=== PATIENT | female | born 1995 | race Caucasian/White ===

== ENCOUNTER 2021-04-09 11:58 | Emergency (ER) | payer BC, SELFPAY ==
--- NOTE | ~2021-04-09 | XR_ITS ---
EXAMINATION: XR hand RT min 3V EXAM DATE: 04/09/2021 12:23 INDICATION: KNI. Twisted 04/08/21. [place], Pain 1st Mp Jt. TECHNIQUE: Right hand frontal, lateral and oblique projections obtained and reviewed. There is no pr ior study for comparison. FINDINGS: Right metacarpal bones are unremarkable. There are no acute fractures or dislocations iden tified. There is no subcutaneous gas. The soft tissue is unremarkable. There are no radiopaque fo reign bodies. IMPRESSION: 1. Right hand exam without acute osseous findings. Reviewed, dictated and finalized at location B. CULTURAL SPECIALIST
[2021-04-09 12:06] VITALS: BP 133/70; PULSE 112; RESP 14; TEMP 37.2; O2SAT 100
[2021-04-09 12:14] VITALS: BP 133/70; PULSE 112; RESP 14; TEMP 37.2; O2SAT 100
--- NOTE | 2021-04-09 12:21 | ED.UPPEXIN ---
HPI - Extremity Injury (Upper) General Chief Complaint: Extremity Injury, Upper Stated Complaint: Right Hand Injury Time Seen by Provider: 04/09/21 12:20 Source: patient, RN notes reviewed and old records reviewed Mode of arrival: ambulatory History of Present Illness HPI narrative: 25 year old female [facility] with complaints of pain to her base of right thumb and right wrist since yesterday. Patient states that she just twisted her wrist area over and felt a pop now pain is constant to the base of her right thumb hand and wrist, no obvious deformity noted or any swelling, strong right radial pulse. Patient reports that she has used ice to her hand and wrist but has not taken any OTC pain relievers. MD complaint: injury to: right and wrist Onset (ago): day(s) (1) Related Data Home Medications Medication Instructions Recorded Confirmed buspirone 15 mg PO DAILY 04/09/21 04/09/21 escitalopram oxalate 10 mg PO DAILY 04/09/21 04/09/21 etonogestrel [Nexplanon] 1 implant SUBDERMAL ONCE 04/09/21 04/09/21 Allergies Allergy/AdvReac Type Severity Reaction Status Date / Time No Known Allergies Allergy Verified 04/09/21 12:13 Review of Systems Review of Systems: CONSTITUTIONAL: Denies fever, chills, or sweats. EYES: Denies visual changes, redness, or discharge. ENT: Denies rhinorrhea, congestion, sore throat, or otalgia. CARDIOVASCULAR: Denies chest pain, palpitations, or edema. RESPIRATORY: Denies cough or dyspnea. GASTROINTESTINAL: Denies abdominal pain, nausea, vomiting, or diarrhea. GENITOURINARY: Denies dysuria or hematuria. SKIN: Denies rash or itching. MUSCULOSKELETAL: Denies back pain, right wrist, hand, and base of thumb pain, or myalgia. NEUROLOGIC: Denies headache, numbness, or weakness. PSYCHIATRIC: Positive history anxiety or depression. All systems reviewed & are unremarkable except as noted in HPI and below PMFSH Past Medical History Medical History (Updated 04/14/21 @ 10:17 by Elida Whitfield NP) Anxiety and depression Fracture of right wrist Ocular albinism Surgical History Surgical History (Updated 04/09/21 @ 12:28 by Elida Whitfield NP) History of eye surgery FOR EYE MUSCLES Family History Family History (Updated 04/09/21 @ 12:42 by Elida Whitfield NP) Grandparent Thyroid disease Diabetes mellitus Cerebrovascular accident Social History Social History (Updated 04/09/21 @ 12:39 by Elida Whitfield NP) Tobacco type: e-cigarettes/vaping Alcohol intake: never Substance use: never Living arrangements: alone Gender identity (if verbalized by the patient): Female Comments At time of signature, agree with nursing past medical, surgical, social and family history. There is no relevant family history pertinent to the presenting complaint Exam Narrative: GENERAL: Well-appearing, well-nourished, and in no acute distress. HEAD: Normocephalic, atraumatic. EYES: PERRLA and EOMI. ENT: Nares clear, no rhinorrhea or epistaxis. Mucous membranes moist.TM's normal with good light reflex, throat pink with no lesions or exudates, no tonsil enlargement. NECK: Supple.no lymphadenopathy CHEST: Clear to auscultation. No respiratory distress.no tachypea or cough noted SAO2 100% on room air HEART: Regular rate and rhythm. No murmur heard. Normal peripheral pulses. ABDOMEN: Soft, nontender, nondistended, normal active bowel sounds. EXTREMITIES: Normal range of motion. No edema.PAINFUL MOVEMENT OF RIGHT WRIST AND PAIN TO RIGHT HAND AND BASE OF RIGHT THUMB WITH NO DEFORMITY OR SWELLING.CIRCULATION AND SENSATION INTACT, INCREASE PAIN WITH ATTEMPTED MOVEMENT. SKIN: Warm, dry, no rash. NEURO: No focal deficits. Alert and oriented x3. Course Vital Signs Vital signs: Vital Signs Temperature 37.2 C 04/09/21 12:06 Pulse Rate 112 H 04/09/21 12:06 Respiratory Rate 14 04/09/21 12:06 Blood Pressure 133/70 04/09/21 12:06 Pulse Oximetry 100 04/09/21 12:06 Temperature
== END 2021-04-09 12:52 | disposition home or self-care (01) ==
PROVIDERS: Emergency Provider Registered Nurse
DX: S63.501A Unspecified sprain of right wrist, initial encounter (principal); S66.911A Strain of unspecified muscle, fascia and tendon at wrist and hand level, right hand, initial encounter; X50.9XXA Other and unspecified overexertion or strenuous movements or postures, initial encounter; F17.200 Nicotine dependence, unspecified, uncomplicated; F41.9 Anxiety disorder, unspecified; F32.9 Major depressive disorder, single episode, unspecified
CPT/HCPCS: 73130; 99203; G0463

== ENCOUNTER 2024-12-05 11:37 | Emergency (ER) | payer OTHER, SELFPAY ==
--- OUTSIDE RECORDS SUMMARY | 2024-12-05 11:40 | XMS_ITS | Clinical Summary ---
Author Organization [facility] Address [address] [place] [address] Care Team Providers Care Farmworker Dairy Name Role Phone Unavailable Primary Care Provider Unavailabl e Source Comments [facility],non-owned Affiliates and Associated Physician Practices is amultiple site organization consisting of ambulatory clinics and hospital sitesin [place], [place], [place] and [place]. This disclosure is being madepursuant to the Care Everywhere program and may not contain all information available regarding this patient. Last updated 18.[facility] Allergies No known active allergies Medications * Be aware that medications may not be up to date on this document. Alwaysverify current medications with the patient. predniSONE (DELTASONE) 20 MG tabletIndicatio ns:Dermatitis 3 a day x 3 days, 2 a day x 3 days, then 1 a day x 5 days 20 Tab 11/18/2016 Active triamcinolone acetonide (KENALOG) 0.1 % creamIndication s:Dermatitis Apply to affected area 2 times daily 15 g 1 11/18/2016 Active Social History Tobacco Use Types Packs/Day Years Used Date Smoking Tobacco: Never Assessed Comments Unknown Sex and Gender Information Value Date Recorded Sex Assigned at Not on file Legal Sex Female 4:09 PM CDT Gender Identity Not on file Sexual Orientation Not on file Last Filed Vital Signs Vital Sign Reading Time Taken Comments Blood Pressure 112/70 11/18/2016 9:11 AM CDT Pulse 69 11/18/2016 9:11 AM CDT Temperature 36.6 C (97.9 F) 11/18/2016 9:11 AM CDT Respiratory Rate 16 11/18/2016 9:11 AM CDT Oxygen Saturation - - Inhaled Oxygen Concentration - - Weight 56.7 kg (125 lb) 11/18/2016 9:11 AM CDT Height 157.5 cm (5' 2) 11/18/2016 9:11 AM CDT Body Mass Index 22.86 11/18/2016 9:11 AM CDT Plan of Treatment Health Maintenance Due Date Last Done Comments HIV SCREENING 2012 HEPATITIS C SCREENING 07/29/2015 DTAP/TDAP/TD VACCINES (1 - Tdap) 2016 HEPATITIS B VACCINE (1 of 3 - 19+ 3-dose series) 2016 COVID-19 VACCINE (1 - 2023-2 5 season) 2024 DEPRESSION SCREENING 05/25/2024 HPV VACCINE (1 - 3-dose SCDM series) 2024 INFLUENZA VACCINE (#1) 2025 ZOSTER VACCINE (1 of 2) 08/03/2047 HIB VACCINE Aged Out No longer eligi ble based on patient's age to complete this topic MENINGOCOCCAL (Group B) VACC INE SHARED DECISION-MAKING Aged Out No longer eligibl e based on patient's age to complete this topic MENINGOCOCCAL GROUPS A/C/Y/W VACCINE Aged Out No longer eligible b ased on patient's age to complete this topic PNEUMOCOCCAL VACCINE Aged Out No long er eligible based on patient's age to complete this topic Insurance [facility]
--- OUTSIDE RECORDS SUMMARY | 2024-12-05 11:40 | XMS_ITS | Referral Summary ---
Author Organization [facility] Address [address] [place] [address] Care Team Providers Care Colon And Rectal Surgeon Name Role Phone No, Physician Primary Care Provider [phone] Allergies No known active allergies Medications hydrOXYzine (ATARAX) 25 mg tabletIndications :anxiety Take 1 tablet (25 mg total) by mouth daily as needed for anxiety 15 tablet 0 Active Additional Information Patient not taking.Reported on 04/26/2022 busPIRone (BUSPAR) 15 mg tablet Take 15 mg by mouth 2 (two) times a day 2 Active escitalopram (LEXAPRO) 10 mg tablet Take 10 mg by mouth daily 2 Active etonogestreL (NEXPLANON) 68 mg implantIndication s: Contraception Active methylPREDNISolon e (Medrol, Hugo,) 4 mg DosepackIndicatio ns:Insect bite of left thigh, initial encounter follow package directions 1 packet 2 Active Additional Information Patient not taking.Reported on 12/14/2021 mupirocin (BACTROBAN) 2 % ointmentIndicatio ns:Insect bite of left thigh, initial encounter Apply topically 3 (three) times a day 22 g 2 Active Additional Information Patient not taking.Reported on 12/14/2021 ibuprofen (ADVIL,MOTRIN) 600 mg tablet Take 1 tablet (600 mg total) by mouth every 6 (six) hours as needed for pain for up to 20 doses 20 tablet 3 Active cyclobenzaprine (FLEXERIL) 10 mg tablet Take 1 tablet (10 mg total) by mouth nightly 20 tablet 3 Active Active Problems Problem Noted Date Diagnosed Date Depressive disorder 11/19/2019 Social History Tobacco Use Types Packs/Day Years Used Date Smoking Tobacco: Every Day Vaping Tobacco Cessation:Ready to Q uit: Not Asked; Counseling Given: Not Answered Alcohol Use Standard Drinks/Week Comments Not Currently 0 (1 standard drink = 0.6 oz pur e alcohol) Hunger Vital Sign Answer Date Recorded Within the past 12 months, y ou worried that your food would run out before you got the money to buy more. Never true 11/19/19 20 Within the past 12 months, t he food you bought just didn't last and you didn't have money to get more. Never true 11/19/2019 PRAPARE - Transportation Answer Date Re corded In the past 12 months, has l ack of transportation kept you from medical appointments or from getting medications? No 10/24 In the past 12 months, has l ack of transportation kept you from meetings, work, or from getting things needed for daily living? No 11/19/2019 Personal Safety Answer Date Recorded Getting School Help Needed Not on file 08/06 Comments No Sex and Gender Information Value Date Recorded Sex Assigned at Not on file Legal Sex Female 7:36 PM SCIENTIFIC LINGUIST Gender Identity Not on file Sexual Orientation Not on file Last Filed Vital Signs Vital Sign Reading Time Taken Comments Blood Pressure 125/71 08/05/2022 2:50 PM CDT Pulse 103 08/05/2022 2:50 PM CDT Temperature 36.9 C (98.4 F) 08/05/2022 2:50 PM CDT Respiratory Rate 18 08/05/2022 2:50 PM CDT Oxygen Saturation 99% 08/05/2022 2:50 PM CDT Inhaled Oxygen Concentration - - Weight 63.5 kg (140 lb) 08/05/2022 2:50 PM CDT Height 157.5 cm (5' 2) 08/05/2022 2:50 PM CDT Body Mass Index 25.61 08/05/2022 2:50 PM CDT Plan of Treatment Not on file Procedures Procedure Name Priority Date/Time Associated Diagnosis Comments SERUM HEPATITIS PANEL Routine 06/16/2012 10:15 PM SCIENTIFIC LINGUIST from Last 3 Months or Most Recently Relevant to Health Maintenance Results * Serum Hepatitis panel (06/16/2012 10:15 PM SCIENTIFIC LINGUIST) HCV ab Negative NEG HISTORICAL RESULTS Comment: Interpretive Data If confirmation is required, call Laboratory Customer Service to request sample to be sent to [facility] for Hepatitis C Virus (HCV) RNA Detection and Quantitation by Real-Time Reverse Saloon Keeper-PCR (RT-PCR). Current interpretive data was last revised on 2011 HBV surface ag Negative NEG HISTO RICAL RESULTS HBV core ab, IgM Negative NEG HIS TORICAL RESULTS Comment: Interpretive Data If test is reported as Equivocal, new sample should be drawn for testing. Current interpretive data was last revised on 2008. HAV ab, IgM Negative NEG HISTORIC AL RESULTS Comment: Interpretive Data If test is reported as Equivocal, new sample should be drawn in two weeks for testing. Current interpretive data was last revised on 2008. Serum 06/16/2012 10:1 5 PM SCIENTIFIC LINGUIST us Historical Provider LAB BLOOD ORDERABLES Ivonne chaudhari Result HISTORICAL RESULTS from Last 3 Months or Most Recently Relevant to Health Maintenance Insurance [place] ACCESS OOS BLUE ACCESS OOS BLUE ACCESS OOS Advance Directives For more information, please contact: [phone] * Full Code (Latest Code Status on File) Date Activated Date Inactivated Comments 11/18/2019 12:14 PM 11/19/2019 3:47 PM Care Teams Colon And Rectal Surgeon Relationship Specialty Start Date End Date No, Physician PCP - General 11/17/19
--- OUTSIDE RECORDS SUMMARY | 2024-12-05 11:40 | XMS_ITS | Clinical Summary ---
Author Organization [facility] Address [address] [place] [address] Care Team Providers Care Hat Block Maker Name Role Phone No, Physician Primary Care Provider [phone] Allergies No known active allergies Medications hydrOXYzine [...] Noted Date Diagnosed Date Depressive disorder 11/19/2019 Surgical History Surgery Date Site/Laterality Comments NO PAST SURGERIES Medical History Medical History Date Comments Self-injurious behavior Suicide attempt (HCC) Depressive disorder 11/19/2019 Family History Medical History Relation Name Comments Mental illness Father Relation Name Status Comments Father Alive Mother Alive Social History Tobacco Use Types Packs/Day Years [...] on file Legal Sex Female 7:36 PM CARDIOPULMONARY TECHNOLOGIST CHIEF Gender Identity Not on file Sexual Orientation Not on file Obstetrics History Last Filed Vital Signs Vital Sign Reading [...] 08/05/2022 2:50 PM CDT Plan of Treatment Health Maintenance Due Date Last Done Comments Cervical Cancer Screening 1997 Depression Screening 1997 Regular Well Visit/Exam 18-64 08/03/2015 Pneumococcal vaccine <65 (1 of 2 - PCV) 2016 DTaP/Tdap/Td Vaccine (7 - Td or Tdap) 11/18/2018 11/18/2008, 09/04/2001, 12/31/1998, Additional history exists Influenza Vaccine (#1) 2025 Hepatitis B Screening Completed 03/01/1998 , 03/01/1998, 1997, Additional history exists Varicella Vaccines Completed 11/03/2006, 0 10/06/2006, 12/21/1999 HPV Vaccines Completed 01/14/2012, 11/18/2008 Hepatitis C Screening Completed 06/16/2012 Procedures Procedure Name Priority Date/Time Associated Diagnosis Comments SERUM HEPATITIS PANEL Routine 06/16/2012 10:15 PM CARDIOPULMONARY TECHNOLOGIST CHIEF from Last 3 Months or Most Recently Relevant to Health Maintenance Results * Serum Hepatitis panel (06/16/2012 10:15 PM CARDIOPULMONARY TECHNOLOGIST CHIEF) HCV ab Negative NEG HISTORICAL RESULTS Comment: Interpretive Data If confirmation is required, call Laboratory Customer Service to request sample to be sent to [facility] for Hepatitis C Virus (HCV) RNA Detection and Quantitation by Real-Time Reverse Bakery Helper-PCR (RT-PCR). Current interpretive data was last revised [...] on 2008. Serum 06/16/2012 10:1 5 PM CARDIOPULMONARY TECHNOLOGIST CHIEF us Historical Provider LAB BLOOD ORDERABLES Ivonne chaudhari Result HISTORICAL RESULTS from Last 3 Months or Most Recently Relevant to Health Maintenance Insurance [place] PRF [place] BL[place] ACCESS [place] BLUE ACCESS [place] BLUE ACCESS OOS Advance Directives For more information, please contact: [phone] * Full Code (Latest Code Status on File) Date Activated Date Inactivated Comments 11/18/2019 12:14 PM 11/19/2019 3:47 PM Care Teams Hat Block Maker Relationship Specialty Start Date End Date No, Physician PCP - General 11/17/19
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
[2024-12-05 11:42] VITALS: BP 128/79; PULSE 94; RESP 20; TEMP 36.8; O2SAT 100
--- NOTE | 2024-12-05 12:10 | ED_ITS ---
HPI - URI/Sore Throat General Chief Complaint: Upper Respiratory Infection Stated Complaint: sinus /ears/nausea Time Seen by Provider: 12/05/24 12:00 Source: patient and RN notes reviewed Mode of arrival: ambulatory Limitations: no limitations History of Present Illness HPI Narrative: 29-year-old female presents Express Care complaining of upper respiratory symptoms for approximately 3 days. Patient reports bilateral ear pain and sinus congestion. Patient denies any sore throat, cough, runny nose, fevers, body aches, chills, nausea, vomiting, diarrhea, chest pain, shortness of breath, or any other symptoms. Patient has been taking Zyrtec and Flonase with some relief. Patient denies any significant past medical problems. Related Data Home Medications ?Medication ?Instructions ?Recorded ?Confirmed ?Last Taken ?Type buspirone 15 mg tablet 15 mg PO DAILY 04/09/21 04/09/21 Unknown History escitalopram oxalate 10 mg tablet 10 mg PO DAILY 04/09/21 04/09/21 Unknown History etonogestrel 68 mg subdermal 1 implant subdermal ONCE 04/09/21 04/09/21 Unknown History implant (Nexplanon) Allergies Allergy/AdvReac Type Severity Reaction Status Date / Time No Known Allergies Allergy Verified 04/09/21 12:13 Review of Systems Review of Systems: CONSTITUTIONAL: Denies fever, chills, body aches, or sweats. EYES: Denies visual changes, redness, or discharge. ENT: Positive for congestion, otalgia. Negative for rhinorrhea, sore throat, or otalgia. CARDIOVASCULAR: Denies chest pain, palpitations, or edema. RESPIRATORY: Negative for cough, wheezing, dyspnea. GASTROINTESTINAL: Denies abdominal pain, nausea, vomiting, or diarrhea. GENITOURINARY: Denies dysuria or hematuria. SKIN: Denies rash or itching. MUSCULOSKELETAL: Denies back pain, joint pain, or myalgia. NEUROLOGIC: Denies headache, numbness, or weakness. PSYCHIATRIC: Denies anxiety or depression. All other systems reviewed are negative, except as documented in HPI. FOR[facility]LY [facility] Past Medical History Medical History Ocular albinism Anxiety and depression Fracture of right wrist Surgical History Surgical History History of eye surgery FOR EYE MUSCLES Family History Family History Grandparent Thyroid disease Diabetes mellitus Cerebrovascular accident Social History Social History Tobacco type: e-cigarettes/vaping Alcohol intake: never Substance use: never Living arrangements: alone Gender identity (if verbalized by the patient): Female Comments At the time of my signature, I reviewed and agree with the nursing past medical, surgical, social, and family history. There is no relevant family history pertinent to the patient complaint. Exam 2 Narrative: GENERAL: This is a well-nourished, well-developed adult, in no apparent distress. They are non ill-appearing, nontoxic appearing. HEAD: normocephalic, atraumatic. EYES: Sclera clear/white. Vision is grossly intact. Conjunctiva normal bilaterally. Extraocular movements intact. EARS: External ears normal, auditory canals clear and without drainage, TMs without erythema or perforation. Hearing grossly intact. NOSE: External nose normal with no obvious nasal discharge, nasal turbinates erythematous, no rhinorrhea. THROAT: Mucous membranes moist, posterior pharynx edematous without redness, no exudate. Uvula is midline. Postnasal drip present. NECK: Neck supple, non-tender without lymphadenopathy, masses or thyromegaly. CARDIOVASCULAR: Regular rate and rhythm without murmurs, gallops, or rubs. RESPIRATORY: Clear to auscultation. Breath sounds equal bilaterally. No wheezes, rales, or rhonchi. SKIN: warm, Dry, intact with no suspicious lesions or rash, good texture and turgor. NEURO: awake, alert, and oriented to person, place and time. There were no obvious focal neurologic abnormalities. EXTREMITIES: No joint tenderness, effusion, or edema noted. BACK: Nontender without deformity. Course Course Emergency Course: Portions of this record may have been created with voice recognition software Level of Care: Express Care Visit Vital Signs Vital signs: Vital Signs Temperature 98.3 F 12/05/24 11:42 Pulse Rate 94 12/05/24 11:42 Respiratory Rate 20 12/05/24 11:42 Blood Pressure 128/79 12/05/24 11:42 Pulse Oximetry 100 12/05/24 11:42 Oxygen Delivery Room Air 12/05/24 11:42 Temperature 98.3 F 12/05/24 11:42 Pulse Rate 94 12/05/24 11:42 Respiratory Rate 20 12/05/24 11:42 Blood Pressure 128/79 12/05/24 11:42 Pulse Oximetry 100 12/05/24 11:42 Oxygen Delivery Room Air 12/05/24 11:42 MDM - URI/Sore Throat MDM Narrative Medical decision making narrative: Symptoms likely viral in etiology. Discussed physical exam findings. Advised supportive measures and signs/symptoms to go to the ER. Pt is appropriate for outpt treatment and f/u. Differential Diagnosis Differential diagnosis: Likely upper respiratory infection, sinusitis and viral infection Discharge Plan Discharge Clinical Impression: Upper respiratory infection Qualifiers: URI type: unspecified viral URI Qualified Code(s): J06.9 - Acute upper respiratory infection, unspecified Patient Disposition: Home Condition: Stable Instructions: Upper Respiratory Infection (ED) Additional Instructions: Viral illness may last between 7-14 days; antibiotics do not cure viral illness and are NOT recommended at this time. Recommend antihistamine such as Zyrtec or Shanti to help with congestion You may also use Flonase 2 sprays daily to help with congestion as well. Cough syrup may cause drowsiness; avoid driving or take it at night time. Also, recommend symptomatic treatment includes: rest, fluids, and increase humidity of the air at home. Tylenol or ibuprofen as needed for pain or fevers. Please schedule a follow-up visit with your personal physician for further evaluation and treatment within 3-5days. If you developed worsening symptoms, breathing problems, chest pains, fevers, or any other concerns please go to the ER immediately. Patient Language: Moldovan Prescriptions: No Action buspirone 15 mg Tablet 15 mg PO DAILY escitalopram oxalate 10 mg Tablet 10 mg PO DAILY Nexplanon 68 mg Implant 1 implant SUBDERMAL ONCE Follow-up/Referrals: PHYSICIAN,PROJECT CONTROL MANAGER [Primary Care Provider] - Time of Disposition: 12:09
== END 2024-12-05 12:16 | disposition home or self-care (01) ==
DX: J06.9 Acute upper respiratory infection, unspecified (principal); F17.290 Nicotine dependence, other tobacco product, uncomplicated; F41.9 Anxiety disorder, unspecified; F32.A Depression, unspecified
CPT/HCPCS: 99211; G0463

== ENCOUNTER 2024-12-09 08:57 | Emergency (ER) | payer OTHER, SELFPAY ==
--- OUTSIDE RECORDS SUMMARY | 2024-12-09 08:59 | XMS_ITS | Data Portability ---
Author Organization [facility] Address [address] [place] [address] Assessment Encounter Date Assessment Date Assessment LastModified [...] B core Ab) igm, serum 2022 023 [facility] (Lab), [address], [place], [address], 3 21:46:18 HBsAg (hepatitis B surface Ag), serum 2022 023 [facility] (Lab), [address], [place], [address], 3 21:46:17 hepatitis C virus Ab, serum 2022 023 [facility] (Lab), [address], [place], [address], 3 21:46:16 unlisted lab - HIV 1/2 antigen/ant ibody, reflex confirmatio n 2022 023 [facility] (Lab), [address], [place], [address], 3 21:46:17 RPR (rapid plasma reagin), serum 2022 023 [facility] (Lab), [address] [facility], [place], [address], 3 21:46:17 test, urine 2022 023 [facility], [facility] [address], [place], [address], 3 07:43:47 Referral None recorded. Procedures None recorded. Surgeries None recorded. Imaging None recorded. Medication Orders Xulane 150 mcg-35 mcg/24 hr transdermal patch 2022 023 [facility][id number], [address] [place], [address], 3 09:39:52 Patient TargetsNo targets recorded. Patient InstructionsNo instructions recorded. Reason for Referral None Reported. Results Created Date Observation Date Name Description Value Unit Range Abnormal Flag Note LastModifiedBy Organization Detail LastModifiedTime 06/03/19 23 06/03/2022 CT/GC AND TRICH OMONA S VAGIN YENI (RRNA ), URINE chlamydia trachomatis, PCR Negati ve negati ve Not Available [facility] (Lab) [address], [place], [address], 06/04/2022 14:10:43 06/03/19 23 06/03/2022 CT/GC AND TRICH OMONA S VAGIN YENI (RRNA ), URINE neisseria gonorrhoeae, PCR Negati ve negati ve Not Available [facility] (Lab) [address], [place], [address], 06/04/2022 14:10:43 06/03/19 23 06/03/2022 CT/GC AND TRICH OMONA S VAGIN YENI (RRNA ), URINE trichomonas vaginalis ribosomal RNA (rrna) Negati ve negati ve Not Available [facility] (Lab) [address], [place], [address], 06/04/2022 14:10:43 06/03/19 23 06/03/2022 pregn courtney test, urine HCG negati ve Not Available [facility] [address], [place], [address], 06/03/2022 16:40:07 09/02/19 23 09/01/2022 IMAGE GUIDE D PAP, REFLE X HPV IF ASCUS ONLY image guided Pap, reflex HPV ASCUS only SEE RESULT S BELOW abnormal CASE REPOR T: Cytol ogy Gynec ologi kirk Repor t Case: [id number] Autho nayelicharanjit carmen Provi raul: Bong Ovalle Colle cted: 09/01 1426 TACKING MACHINE OPERATOR Order ing Locat ion: [place] [facility] [...] patie nt consi derat ions. Not Available [facility] (Lab) [address], [place], [address], 09/08/2022 15:44:13 Result Notes None recorded. Procedures Surgical History Date Name Laterality Status Provider Name and Address Organization Details Recorded Time 09/02/19 23 Date of Last Pap Smear completed Simona Santacruz [facility] 01/01/2023 16:35:47 06/03/19 23 Control Implant Removal completed Christine Anguiano [facility]- [address], [place], [address], [facility] 06/03/2022 16:54:54 procedure on eye completed [facility] 06/03/2022 16:22:42 extraction of wisdom tooth completed [facility] 06/03/2022 16:22:51 Imaging Results None recorded. Procedure Notes None recorded. Medical Equipment None Reported. Allergies Allergen ID Allergen Name Allergen Category Reaction Reaction Severity Criticality Documentation Date Start Date Code Code System Note Provider Name and Address Organization Details Recorded Time ethinyl estradiol / norelgest romin medicatio n other mild Not available 07/01/20222022 28640 7 RxNorm Skin irrit ation from adhes samantha patch Christine nogueira, [facility] [address], [place], [address] , [facility] 3 12:35:58 Medications Name Sig [...] Updated DateTime 06/03/2022 122/82 mm[Hg] Christine Anguiano, [facility]- [address], [place], [address], [facility] 06/03/2022 16:56:09 Date Recorded Body height Body mass index (BMI) Body weight Provider Name and Address Organization Details Last Updated DateTime 06/03/2022 157.48 cm 26.7 kg/m2 49829.49 g [facility] 06/03/2022 16:21:18 Date Recorded Body height Body mass index (BMI) Body weight Systolic And Diastolic Provider Name and Address Organization Details Last Updated DateTime 09/01/2022 157.48 cm 26.6 kg/m2 33044.61 g 126/82 mm[Hg] [facility] 09/01/2022 09:39:16 Date Recorded Body height Body mass index (BMI) Body weight Systolic And Diastolic Provider Name and Address Organization Details Last Updated DateTime 01/01/2023 157.48 cm 26.5 kg/m2 81684.89 g 119/75 mm[Hg] Simona Santacruz [facility] 01/01/2023 16:34:59 Social History Question Answer Notes LastModified by Organizat ion Details LastModified Time Tobacco Smoking Status Never Smoker Jackie oseguera, [facility] 01/01/2023 16:18:25 How Many Years Have [...] Or The Highest Degree You Have Received? [id number] Information not available 06/03/2022 Are There Any [...] Have Difficulty Walking Or Climbing Stairs? No [email or web address] Information not available 01/01/2023 Sex: Unknown Functional Status Question Answer Note LastModified by Organizat ion Details LastModified Time Do you use any illicit or recreational drugs? No Information not available 06/03/2022 What is your level of alcohol consumption? Occasional Information not available 06/03/2022 Are you able to walk? YESWOREST Information not available 06/03/2022 Are you able to care for yourself? 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 No [email or web address] Information not available 01/01/2023 What is your exercise level? Occasional Information not available 06/03/2022 Mental Status Question Answer Note LastModified by Organization D etails LastModified Time Do you feel stressed (tense, restless, nervous, or anxious, or unable to sleep at night)? [id number] Information not available 06/03/2022 Family History Relationship [...] (Food, seasonal, environmental ) N Other N Blood Transfusion N Drug/Latex Allergies/Reactions N Breast Cancer N Dermatologic Disorders N Lung Disease N [...] SNOMED-CT Code Diagnosis ICD10 Code Diagnosis Note [id number] Christine Anguiano , [facility] [address] [address] 06/03/2022 16:12:20 06/03/2022 16:56:27 Abnormal uterine bleeding [id number] 9100 N93.9 Today we agreed to remove [...] spent on procedure. Removal of subcutaneous contraceptive 159366166 Z30.46 Removal site was cleansed with betadine and 3cc of lidocaine used for anesthesia . Device was removed in normal fashion without difficulty . Steri stips and pressure bandage placed. Contracept ion care management 618730010 Z30.9 Discussed all control options in great [...] check & WWE visit with pap smear [id number] Christine Anguiano [facility] [address] [address] 09/01/2022 09:33:12 09/01/2022 10:03:55 Gynecologic examination 45701125 Z01.419 Take Calcium with Vitamin D 1200mg [...] condoms or abstience for her BC method. [id number] ENRIQUE Andrea [facility] [address] [address] 01/01/2023 16:17:48 01/01/2023 17:04:27 Venereal disease screening 179807494 Z11.3 [facility] orderedvul [facility] care guidelines discussed - d/c use of [...] of care. Sexually t ransmitted infectious disease 8650855 A64 Vaginal discharge 915122 006 N89.8 Health Concerns Section Related Observation LastModified by Organization Detai ls LastModified Time None Recorded Concern Status LastModified by Organization Details LastModified Time None Recorded Advance Directives Directive None Recorded Payers Insurance Date Sequence Insurance Name Policy Number Policy Pfeiffer Covered Member ID Pfeiffer Member ID Guarantor Name 12/31/2022 1 [facility] ([id number]) [id number] Amna Dumont [id number] Amna Dumont Notes Date Note Type [...] Vag d/c, itching, odor.See ROS. Christine Anguiano, [facility]- [address], [place], [address], [place] [facility] 06/03/2022 16:56:18 09/01/2022 text/html Annual GYNReport [...] pap smears ENRIQUE Haque- [address], [place], [address], [facility] 09/01/2022 09:49:46 01/01/2023 text/html 27yopresents for STI testingno symptoms, no known exposureBC - FAMhas vaginal d/c on and off, no odors/itching/or irritation - clear/white discharge. Would like testing for BV/yeast todayshe uses honey pot vaginal wash ENRIQUE Andrea [address], [place], [address], [facility] 01/01/2023 16:59:51 OBGyn Episode No OBEpisode recorded.
--- OUTSIDE RECORDS SUMMARY | 2024-12-09 08:59 | XMS_ITS | Clinical Summary ---
Author Organization [facility] Address [address] [place] [address] Care Team Providers Care Regulatory Compliance Specialist Name Role Phone Unavailable Primary Care Provider Unavailabl e Social History Tobacco Use Types Packs/Day Years Used Date Smoking Tobacco: Never Assessed Comments Unknown Sex and Gender Information Value Date Recorded Sex Assigned at Not on file Legal Sex Female 7:11 PM CDT Gender Identity Not on file Sexual Orientation Not on file Plan of Treatment Health Maintenance Due Date Last Done Comments Cervical Cancer Screening Pa p Smear (Age 21 to 29) Every 3 Years 1997 Cervical Cancer Screening 1997 Annual Physical 2000 Hepatitis C 08/03/2015 DTaP, Tdap and Td Vaccines ( 1 - Tdap) 2016 Hepatitis B Vaccines (1 of 3 - 19+ 3-dose series) 2016 COVID-19 Vaccine (2023-2 5 season) 2024 HPV Vaccines Aged Out No longer eligi ble based on patient's age to complete this topic Meningococcal B Vaccine Aged Out No l onger eligible based on patient's age to complete this topic Meningococcal Vaccine Aged Out No shanelle cielo eligible based on patient's age to complete this topic Pneumococcal Vaccine: Pediat rics (0 to 5 Years) and At-Risk Patients (6 to 49 Years) Aged Out No longer eligible b ased on patient's age to complete this topic RSV Immunizations Under 20 Months Aged Out No longer eligible based on patient's age to complete this topic
--- OUTSIDE RECORDS SUMMARY | 2024-12-09 08:59 | XMS_ITS | Clinical Summary ---
Author Organization [facility] [employer] Address [address] [place] [address] Care Team Providers Care Visual Supervisor Name Role Phone Unavailable Primary Care Provider Unavailabl e Source Comments [facility] [employer],non-owned Affiliates and Associated Physician Practices is amultiple site organization consisting of ambulatory clinics and hospital sitesin [place], [place], [place] and [place]. This disclosure is being madepursuant to the Care Everywhere program and may not contain all information available regarding this patient. Last updated 18.[facility] [employer] Allergies No known active allergies Medications * [...] patient's age to complete this topic Insurance [facility]
--- OUTSIDE RECORDS SUMMARY | 2024-12-09 08:59 | XMS_ITS | Referral Summary ---
Author Organization [facility] Address [address] [place] [address] Care Team Providers Care Crusher Screen Repairer Name Role Phone No, Physician Primary Care Provider Allergies No known active allergies Medications hydrOXYzine [...] on file Legal Sex Female 7:36 PM BOARDINGHOUSE KEEPER Gender Identity Not on file Sexual Orientation [...] SERUM HEPATITIS PANEL Routine 06/16/2012 10:15 PM BOARDINGHOUSE KEEPER from Last 3 Months or Most Recently Relevant to Health Maintenance Results * Serum Hepatitis panel (06/16/2012 10:15 PM BOARDINGHOUSE KEEPER) HCV ab Negative NEG HISTORICAL RESULTS Comment: Interpretive Data If confirmation is required, call Laboratory Customer Service to request sample to be sent to [facility] for Hepatitis C Virus (HCV) RNA Detection and Quantitation by Real-Time Reverse Aeronautical Design Engineer-PCR (RT-PCR). Current interpretive data was last revised [...] on 2008. Serum 06/16/2012 10:1 5 PM BOARDINGHOUSE KEEPER us Historical Provider LAB BLOOD ORDERABLES Ivonne chaudhari Result HISTORICAL RESULTS from Last 3 Months or Most Recently Relevant to Health Maintenance Insurance [place] ACCESS OOS BLUE ACCESS OOS BLUE ACCESS OOS Advance Directives For more information, please contact: [phone] * Full Code (Latest Code Status on File) Date Activated Date Inactivated Comments 11/18/2019 12:14 PM 11/19/2019 3:47 PM Care Teams Crusher Screen Repairer Relationship Specialty Start Date End Date No, Physician PCP - General 11/17/19
--- OUTSIDE RECORDS SUMMARY | 2024-12-09 08:59 | XMS_ITS | Clinical Summary ---
Author Organization [facility] Address [address] [place] [address] Care Team Providers Care Wind Field Service Manager Name Role Phone No, Physician Primary Care Provider [phone] Allergies No known active allergies Medications hydrOXYzine [...] on file Legal Sex Female 7:36 PM MANAGER INTENSIVE CARE Gender Identity Not on file Sexual Orientation [...] SERUM HEPATITIS PANEL Routine 06/16/2012 10:15 PM MANAGER INTENSIVE CARE from Last 3 Months or Most Recently Relevant to Health Maintenance Results * Serum Hepatitis panel (06/16/2012 10:15 PM MANAGER INTENSIVE CARE) HCV ab Negative NEG HISTORICAL RESULTS Comment: Interpretive Data If confirmation is required, call Laboratory Customer Service to request sample to be sent to [facility] for Hepatitis C Virus (HCV) RNA Detection and Quantitation by Real-Time Reverse Water Main Pipe Layer-PCR (RT-PCR). Current interpretive data was last revised [...] on 2008. Serum 06/16/2012 10:1 5 PM MANAGER INTENSIVE CARE us Historical Provider LAB BLOOD ORDERABLES Ivonne chaudhari Result HISTORICAL RESULTS from Last 3 Months or Most Recently Relevant to Health Maintenance Insurance [place]F [place] BLUE ACCESS OOS BLUE ACCESS OOS BLUE ACCESS OOS Advance Directives For more information, please contact: [phone] * Full Code (Latest Code Status on File) Date Activated Date Inactivated Comments 11/18/2019 12:14 PM 11/19/2019 3:47 PM Care Teams Wind Field Service Manager Relationship Specialty Start Date End Date No, Physician PCP - General 11/17/19
[2024-12-09 09:00] VITALS: BP 140/84; PULSE 113; RESP 16; TEMP 36.6; O2SAT 98
--- NOTE | 2024-12-09 09:03 | ED_ITS ---
HPI - Dental/Oral General Chief complaint: Dental/Oral Stated complaint: Swollen Face from Tooth Time Seen by Provider: 12/09/24 09:03 Mode of arrival: ambulatory Limitations: no limitations History of Present Illness HPI Narrative: 29-year-old female presents with concern for right lower dental pain. Reports she has had a toothache for a week and today she woke up and it was swollen. She reports her wisdom teeth are coming in. She has a dentist appointment on Thursday. She denies fever trouble swallowing. MD Complaint: tooth pain Related Data Home Medications ?Medication ?Instructions ?Recorded ?Confirmed ?Last Taken ?Type buspirone 15 mg tablet 15 mg PO DAILY 04/09/21 04/09/21 Unknown History escitalopram oxalate 10 mg tablet 10 mg PO DAILY 04/09/21 04/09/21 Unknown History etonogestrel 68 mg subdermal 1 implant subdermal ONCE 04/09/21 04/09/21 Unknown History implant (Nexplanon) Allergies Allergy/AdvReac Type Severity Reaction Status Date / Time No Known Allergies Allergy Verified 04/09/21 12:13 Review of Systems Review of Systems: CONSTITUTIONAL: Denies malaise, chills, sweats, or fever. EYES: Denies visual changes ENT: Denies rhinorrhea, congestion, sinus pain, otalgia or sore throat. Reports right lower dental pain CARDIOVASCULAR: Denies chest pain, palpitations RESPIRATORY: Denies cough or dyspnea. SKIN: Denies rash or itching. MUSCULOSKELETAL: Denies myalgia. NEUROLOGIC: Denies numbness, weakness, or headache. All systems reviewed & are unremarkable except as noted in HPI and below PMFSH Past Medical History Medical History Ocular albinism Anxiety and depression Fracture of right wrist Surgical History Surgical History History of eye surgery FOR EYE MUSCLES Family History Family History Grandparent Thyroid disease Diabetes mellitus Cerebrovascular accident Social History Social History Tobacco type: e-cigarettes/vaping Alcohol intake: never Substance use: never Living arrangements: alone Gender identity (if verbalized by the patient): Female Comments At time of signature, agree with nursing past medical, surgical, social and family history. There is no relevant family history pertinent to the presenting complaint Exam Narrative: GENERAL: Well-appearing, well-nourished, and in no acute distress. HEAD: Normocephalic, atraumatic. EYES: PERRLA, sclera clear ENT: Nares clear, turbinates pink, no rhinorrhea or epistaxis. Mucous membranes moist. Oropharynx without erythema or lesions. Tonsils not enlarged and without exudate. No Missing teeth, broken teeth, caries noted. Right jaw swelling and tenderness noted NECK: Supple. No lymphadenopathy. CHEST: No respiratory distress. Speaks in full sentences. HEART: Regular rate and rhythm. SKIN: Warm, dry, no visible rash. NEURO: Alert and oriented x3. PSYCH: Normal mood and affect Course Course Emergency Course: Patient is aware of diagnosis, understands and agrees to treatment plan. Anticipatory guidance given. Patient agrees to follow-up as directed and is aware of reasons to seek care at the emergency department. Portions of this record may have been created with voice recognition software Level of Care: Express Care Visit Vital Signs Vital signs: Vital Signs Temperature 98 F 12/09/24 09:00 Pulse Rate 113 H 12/09/24 09:00 Respiratory Rate 16 12/09/24 09:00 Blood Pressure 140/84 12/09/24 09:00 Pulse Oximetry 98 12/09/24 09:00 Oxygen Delivery Room Air 12/09/24 09:00 Temperature 98 F 12/09/24 09:00 Pulse Rate 113 H 12/09/24 09:00 Respiratory Rate 16 12/09/24 09:00 Blood Pressure 140/84 12/09/24 09:00 Pulse Oximetry 98 12/09/24 09:00 Oxygen Delivery Room Air 12/09/24 09:00 Reviewed. MDM - Dental/Oral MDM Narrative Medical decision making narrative: I evaluated this in the express care. History is obtained from patient who is an independent historian and physical exam was performed.? Available medical records were reviewed. ? Exam findings and relevant testing show no acute concerns or changes; patient is non-toxic appearing and is in no distress. Patients pain and complaint coupled with physical findings are consistant with dentalgia. There are no focal signs of space occupying lesions that are compromi sing to the airway; no dysphagia, odynophagia, dysphonia, or dyspnea. No uvular deviation or soft palate edema. Patient is non-toxic appearing. The floor of the mouth is soft with no signs of Fer's Angina; no induration below mandible, no neck pain. Patient is without trismus or drooling and able to swallow secretions. Patient is felt appropriate for discharge home with dental follow up. ? Differential diagnosis and treatment plan were discussed with the patient. Patient agrees with discussion and after shared medical decision making agrees with plan of care. All questions were answered to the patient's satisfaction. Patient is appropriate for outpatient treatment and follow-up. Differential Diagnosis Differential diagnosis: Likely gingival abscess, dental caries, toothache, dental abscess, fracture of tooth and aphthous ulcer Critical Care Time Critical Care Time Critical Care Time: No Discharge Plan Discharge Clinical Impression: Dental abscess Patient Disposition: Home Condition: Stable Instructions: Antibiotic Form, Dental Abscess (ED) Additional Instructions: Take antibiotic as directed Avoid temperature extremes May apply heat or ice to the face Gentle brushing and flossing Take 2 extra strength Tylenol, 4 ibuprofen, 80 mg of caffeine at same time. You can do this every 6 hours. Do not do this for more than 2 - 3 days. You can substitute 25 mg Benadryl at nighttime for caffeine to help you sleep. Do this for no more than 3 days. Follow-up with the dentist as soon as possible - see the list provided Patient Language: Sinhala Prescriptions: New amoxicillin-pot clavulanate 875-125 mg tablet 1 tablet PO Q12H 10 Days Qty: 20 0RF No Action buspirone 15 mg Tablet 15 mg PO DAILY escitalopram oxalate 10 mg Tablet 10 mg PO DAILY Nexplanon 68 mg Implant 1 implant SUBDERMAL ONCE Follow-up/Referrals: PHYSICIAN,BODY BUILDER APPRENTICE [Primary Care Provider] - Stand Alone Forms: Work/School Release IP Time of Disposition: 09:11
== END 2024-12-09 09:16 | disposition home or self-care (01) ==
PROVIDERS: Emergency Provider Nurse Practitioner
DX: K04.7 Periapical abscess without sinus (principal); F17.290 Nicotine dependence, other tobacco product, uncomplicated; F41.9 Anxiety disorder, unspecified; F32.A Depression, unspecified
CPT/HCPCS: 99213; G0463

== ENCOUNTER 2025-05-02 11:22 | Emergency (ER) | payer OTHER, SELFPAY ==
--- NOTE | ~2025-05-02 | XR_ITS ---
Examination: XR hand RT min 3V Clinical History: injury Comparison: None Technique: 3 views right hand Findings/impression: 1. No fracture or dislocation identified right hand. Reviewed, dictated and finalized at location [facility]. [facility] VISITOR
[2025-05-02 11:30] VITALS: BP 136/73; PULSE 94; RESP 20; TEMP 36.9; O2SAT 100
--- NOTE | 2025-05-02 11:36 | ED.UPPEXIN ---
HPI - Extremity Injury (Upper) General Chief Complaint: Extremity Injury, Upper Stated Complaint: right hand injury Time Seen by Provider: 05/02/25 12:04 Source: patient and RN notes reviewed Mode of arrival: ambulatory Limitations: no limitations History of Present Illness HPI narrative: 29-year-old female presents with concern for ongoing right hand pain and bruising. She reports on April 22 she punched a drywall wall, she went to the emergency room, they did an x-ray and told her was not broken but she should follow up if it is still not getting better. Patient reports she still has bruising, swelling and pain of the 5th digit and just below the 5th digit. She has been intermittently taking ibuprofen. MD complaint: injury to: right and hand Related Data Home Medications ?Medication ?Instructions ?Recorded ?Confirmed ?Last Taken ?Type buspirone 15 mg tablet 15 mg PO DAILY 04/09/21 04/09/21 Unknown History escitalopram oxalate 10 mg tablet 10 mg PO DAILY 04/09/21 04/09/21 Unknown History etonogestrel 68 mg subdermal 1 implant subdermal ONCE 04/09/21 04/09/21 Unknown History implant (Nexplanon) Allergies Allergy/AdvReac Type Severity Reaction Status Date / Time No Known Allergies Allergy Verified 05/02/25 11:38 Review of Systems Review of Systems: CONSTITUTIONAL: Denies malaise, chills, sweats, or fever. SKIN: Denies rash or itching, open skin, laceration, abrasion, redness, warmth MUSCULOSKELETAL: Reports right hand pain, bruising, swelling NEUROLOGIC: Denies numbness, weakness All systems reviewed & are unremarkable except as noted in HPI and below PMFSH Past Medical History Medical History Ocular albinism Anxiety and depression Fracture of right wrist Surgical History Surgical History History of eye surgery FOR EYE MUSCLES Family History Family History Grandparent Thyroid disease Diabetes mellitus Cerebrovascular accident Social History Social History Tobacco type: e-cigarettes/vaping Alcohol intake: never Substance use: never Living arrangements: alone Gender identity (if verbalized by the patient): Female Comments At time of signature, agree with nursing past medical, surgical, social and family history. There is no relevant family history pertinent to the presenting complaint Exam Narrative: GENERAL: Well-appearing, well-nourished, and in no acute distress. HEAD: Normocephalic EYES: PERRLA, conjunctivae clear NECK: Supple. CHEST: Speaks in full sentences. No respiratory distress. HEART: Regular rate and rhythm. Normal and equal peripheral pulses. EXTREMITIES: Right hand and digits of hand have normal strength and sensation. 5/5 strength with digit flexion, extension. Range of motion normal. No clubbing, cyanosis. Mild dorsal tenderness, edema and ecchymosis noted to the 5th digit on below the 5th digit. Late stage ecchymosis noted to the dorsal hand. Normal digital cascade with flexion of fingers, median, ulnar and radial nerve intact. Normal sensation of each side of finger. Can perform 'okay' sign, 'cross over finger test of index and middle fingers' and 'thumbs up' sign. No scissoring. Normal thumb opposition. Good capillary refill and radial pulse. Distal capillary refill less than 3 seconds. Patient is right/left hand dominant SKIN: Warn, dry, intact, pink. Scabbed abrasion noted to the the PIP joint of the 5th digit, otherwise Skin intact. NEURO: Alert and oriented x3. PSYCH: Normal mood and affect Course Course Emergency Course: Patient is aware of diagnosis, understands and agrees to treatment plan. Anticipatory guidance given. Patient agrees to follow-up as directed and is aware of reasons to seek care at the emergency department. Portions of this record may have been created with voice recognition software Level of Care: [facility] Visit MDM Differential Diagnosis Differential Diagnosis: I evaluated this patient in the [facility]. History is obtained from patient who is an independent historian and physical exam was performed.? Available medical records were reviewed. ? Exam findings and relevant testing show no acute concerns or changes; patient is non-toxic appearing and is in no distress. ? Patients injury and pain is consistent with musculoskeletal etiology. No signs of neurological or vascular compromise on exam. Compartments and tissues are soft without signs of compartment syndrome. Pain is felt appropriate for further evaluation on an outpatient basis. Differential diagnosis and treatment plan were discussed with the patient. Patient agrees with discussion and after shared medical decision making agrees with plan of care. All questions were answered to the patient's satisfaction. Patient is appropriate for outpatient treatment and follow-up. Imaging Data My impression: Images reviewed, interpreted by radiologist, agree, see report. Radiologist's impression: Examination: XR hand RT min 3V Clinical History: injury Comparison: None Technique: 3 views right hand Findings/impression: 1. No fracture or dislocation identified right hand. Discharge Plan Discharge Clinical Impression: Hand sprain Patient Disposition: Home Condition: Stable Instructions: Hand Sprain (ED) Additional Instructions: Avoid activities that cause pain until the pain subsides. Ice to the area 20-30 minutes 4-6 times a day Elevate above heart Elastic wrap and orthopedic splint as directed for comfort for the next 5-7 days Tylenol for lesser pain Ibuprofen regularly for the next 2-3 days for the inflammation Follow up with specialist if the condition is not improving within 1 week. If the condition worsens with numbness, tingling, decrease sensation with weakness seek treatment in the emergency room immediately. Patient Language: Nam[place]ian Prescriptions: No Action buspirone 15 mg Tablet 15 mg PO DAILY escitalopram oxalate 10 mg Tablet 10 mg PO DAILY Nexplanon 68 mg Implant 1 implant SUBDERMAL ONCE Follow-up/Referrals: Rye Zarco MD [Physician, Plastic Surgery] PHYSICIAN,SURVEY FIELD TECHNICIAN [Primary Care Provider, Internal Medicine] Time of Disposition: 12:23
== END 2025-05-02 12:25 | disposition home or self-care (01) ==
PROVIDERS: Emergency Provider Nurse Practitioner
DX: S63.91XD Sprain of unspecified part of right wrist and hand, subsequent encounter (principal); W22.8XXD Striking against or struck by other objects, subsequent encounter; E70.319 Ocular albinism, unspecified; F41.9 Anxiety disorder, unspecified; F32.A Depression, unspecified; F17.290 Nicotine dependence, other tobacco product, uncomplicated
CPT/HCPCS: 73130; 99213; G0463